=== PATIENT | female | born 1965 | race American Indian/Alaskan Native ===

== ENCOUNTER 2017-05-16 10:12 | Emergency (ER) | payer MEDICAID ==
[2017-05-16 10:38] VITALS: BP 122/98
[2017-05-16] MEDS ORDERED: TESSALON PERLES PO ONE (11:30)
--- NOTE | 2017-05-16 11:32 | Emergency Department Report ---
Chief Complaint: Sore Throat Stated Complaint: THROAT PAIN Time Seen by Provider: 05/16/17 11:24 - HPI History of Present Illness: Patient is a 51-year-old female who is presenting with cough cold congestion. Patient states that her symptoms started approximately 5 days ago with nausea vomiting diarrhea. He then progressed to a productive cough. With clear sputum. Patient now has a cough that is mostly dry however she also has sore throat. Patient states that she has had subjective fevers. Patient currently is no longer having nausea vomiting or diarrhea. Patient will receive a chest x-ray and rapid strep - Exam Vital Signs: Vital Signs 05/16/17 10:36 Temperature 99.2 F Pulse Rate 83 Respiratory 16 Rate Blood Pressure 122/98 O2 Sat by Pulse 96 Oximetry Physical Exam: Physical exam is within normal limits except for HEENT exam patient has mild erythema to the posterior pharynx. On lung exam patient has clear lungs but has a bronchitic cough. MSE screening note: Focused history and physical exam performed. Due to findings the following was ordered: ED Disposition for MSE Condition: Stable Referrals: PRIMARY CARE [Primary Care Provider] - 3-5 Days
--- NOTE | 2017-05-16 11:57 | XRay Report ---
Chest 2 views: History: Productive cough. Findings: Borderline cardiomegaly. Trachea is midline. No consolidation, pneumothorax or pleural effusion. Impression: Cardiomegaly. No acute lung changes.
--- NOTE | 2017-05-16 12:57 | Emergency Department Report ---
HPI - General Chief Complaint: Sore Throat Time Seen by Provider: 05/16/17 11:24 - HPI HPI: This is a 51-year-old female who presents to ED complaining of cough and throat pain 6 days. Patient states yellow mucus productive cough. Patient states is intermittent throughout the day. Patient denies fevers/chills/nausea/vomiting/ abdominal pain/chest pain/shortness of breath/ ED Past Medical Hx - Past Medical History Hx Hypertension: Yes (last meds 1 week ago) Hx Diabetes: Yes Hx Asthma: Yes (last use of inhaler 1 month ago) - Surgical History Additional Surgical History: D&C, eye surgery x 3 - Social History Smoking Status: Never Smoker - Medications Home Medications: Home Medications Medication Instructions Recorded Confirmed Last Taken Type Albuterol Sulfate [Proventil HFA] 1 - 2 puff IH Q4H PRN 10/21/14 01/19/15 History AtorvaSTATin [Lipitor] 40 mg PO QDAY 10/21/14 01/19/15 01/12/15 History Ergocalciferol (Vitamin D2) 2,000 unit PO DAILY 10/21/14 01/19/15 01/12/15 History [Vitamin D2] Fluticasone [Flonase] 1 spray NS QDAY 10/21/14 01/19/15 01/14/15 History Latanoprost 0.005% [Xalatan 0.005%] 1 drop OP QPM 10/21/14 01/19/15 01/12/15 History Metoprolol [Lopressor] 25 mg PO QDAY 10/21/14 01/19/15 01/12/15 History Tobramycin/Dexamethasone [Tobradex 1 - 2 drop OP Q6HR 10/21/14 01/19/15 History Eye Drops 0.3/0.1%] Triamter/Hctz 37.5-25 mg 1 tab PO QDAY 10/21/14 01/19/15 01/12/15 History [Maxzide-25] Azithromycin [Zithromax] 250 mg PO DAILY #1 pack 05/16/17 Unknown Rx Ibuprofen [Motrin] 800 mg PO Q8HR PRN #30 tablet 05/16/17 Unknown Rx guaiFENesin [Robitussin] 200 mg PO Q6HR #20 tablet 05/16/17 Unknown Rx ED Review of Systems ROS: Stated complaint: THROAT PAIN Other details as noted in HPI Constitutional: denies: chills, fever Eyes: denies: eye pain, eye discharge, vision change ENT: congestion. denies: ear pain, throat pain Respiratory: cough. denies: shortness of breath, wheezing Cardiovascular: denies: chest pain, palpitations Endocrine: no symptoms reported Gastrointestinal: denies: abdominal pain, nausea, diarrhea Genitourinary: denies: urgency, dysuria, frequency, discharge Musculoskeletal: denies: back pain, joint swelling, arthralgia Skin: denies: rash, lesions Neurological: denies: headache, weakness, paresthesias Psychiatric: denies: anxiety, depression Hematological/Lymphatic: denies: easy bleeding, easy bruising Physical Exam - Physical Exam Vital Signs: Vital Signs 05/16/17 10:36 Temperature 99.2 F Pulse Rate 83 Respiratory 16 Rate Blood Pressure 122/98 O2 Sat by Pulse 96 Oximetry Physical Exam: GENERAL: Alert and oriented x3, no apparent distress, Normal Gait, atraumatic. HEAD: Head is normocephalic and a-traumatic. EYES: Extra ocular muscles are intact. Pupils are equal, round, and reactive to light and accommodation. EARS: symetrical, atraumatic, non tender, ear canal clear and moderate cerumen, tympanic membrance non inflamed. gross auditory nml bilaterally. NOSE: Nose symetrical, Nontender,Nares appeared normal. MOUTH:Mouth is well hydrated and without lesions. Tonsils nonerythematous or swollen, Uvula midline, Tongue not elevated. Mucous membranes are moist. Posterior pharynx clear, no exudate or lesions. Patent airways. NECK: Supple. Non edematous, No carotid bruits. No lymphadenopathy or thyromegaly. No C-spine tenderness LUNGS: Symetrical with respiration, No wheezing, no rales or crackles, CTAB. HEART: S1, S2 present, regular rate and rhythm without murmur, no rubs, no gallops. Non tender to palpatio SKIN: Warm and dry, No lesions, No ulceration or induration present. ED Course Vital Signs 05/16/17 10:36 Temperature 99.2 F Pulse Rate 83 Respiratory 16 Rate Blood Pressure 122/98 O2 Sat by Pulse 96 Oximetry ED Medical Decision Making - Radiology Data Radiology results: report reviewed, image reviewed Ordering Physician: JD SOARES MD Date of Service: 05/16/17 Procedure(s): XR chest routine 2V Accession Number(s): [id number] cc: JD SOARES MD Fluoro Time In Minutes: Chest 2 views: History: Productive cough. Findings: Borderline cardiomegaly. Trachea is midline. No consolidation, pneumothorax or pleural effusion. Impression: Cardiomegaly. No acute lung changes. Transcribed By: PTP Dictated By: AMBER SHUKLA MD Electronically Authenticated By: AMBER SHUKLA MD Signed Date/Time: 05/16/17 1140 - Medical Decision Making 51-year-old female presents with upper respiratory infection course: Chest x-ray was ordered. Chest x-ray shows no acute pulmonary infection but shows some mild cardiomegaly. SHe exhibited no chest pain in the ED. Discussed x-ray findings with the patient. I discussed the patient will be going with some antibiotics and cough suppressant. Uneventful ED stay. Vital signs are normal patient is in no acute or respiratory distress. Critical care attestation.: If time is entered above; I have spent that time in minutes in the direct care of this critically ill patient, excluding procedure time. ED Disposition Clinical Impression: URI (upper respiratory infection) Qualifiers: URI type: unspecified URI Qualified Code(s): J06.9 - Acute upper respiratory infection, unspecified Disposition: DC-01 TO HOME OR SELFCARE Is pt being admited?: No Does the pt Need Aspirin: No Condition: Stable Instructions: Pharyngitis (ED), Upper Respiratory Infection (ED) Additional Instructions: Make sure to follow up with the primary care physician as discussed. Take all your medications as you've been prescribed. If you have any worsening symptoms or develop new symptoms please return to ED immediately. Prescriptions: Azithromycin [Zithromax] 250 mg PO DAILY #1 pack guaiFENesin [Robitussin] 200 mg PO Q6HR #20 tablet Ibuprofen [Motrin] 800 mg PO Q8HR PRN #30 tablet PRN Reason: Pain Referrals: PRIMARY CARE, [Primary Care Provider] - 3-5 Days Forms: Accompanied Note, Work/School Release Form(ED) Time of Disposition: 12:57
== END 2017-05-16 13:15 | disposition home or self-care (01) ==
LOC: ED 10:12
DX: J06.9 Acute upper respiratory infection, unspecified (principal); I10 Essential (primary) hypertension; E11.9 Type 2 diabetes mellitus without complications; J45.909 Unspecified asthma, uncomplicated
CPT/HCPCS: 71020; 87116; 87430

== ENCOUNTER 2018-07-01 16:52 | Emergency (ER) | payer MEDICAID ==
[2018-07-01] MEDS ORDERED: ASPIRIN PO ONE (17:01)
--- NOTE | 2018-07-01 17:12 | Emergency Department Report ---
ED General Adult HPI - General Chief complaint: Chest Pain Stated complaint: CHEST/LEFT ARM PAIN/SWEATS Time Seen by Provider: 07/01/18 17:11 Source: patient Mode of arrival: Ambulatory Limitations: No Limitations - History of Present Illness Initial comments: Patient is a 52-year-old female no significant past medical history who presents with chest pain she states the chest pain started around a few hours ago. She states that the chest pain is located in the middle for chest and radiates to her left arm. She says the chest pain since 6 out of 10. She says this occurred while she was walking up the stairs. No diaphoresis no nausea no vomiting. - Related Data Home Medications Medication Instructions Recorded Confirmed Last Taken Albuterol Sulfate [Proventil HFA] 1 - 2 puff IH Q4H PRN 10/21/14 01/19/15 0 12/20/14 AtorvaSTATin [Lipitor] 40 mg PO QDAY 10/21/14 01/19/15 01/12/15 Ergocalciferol (Vitamin D2) 2,000 unit PO DAILY 10/21/14 01/19/15 01/12/15 [Vitamin D2] Fluticasone [Flonase] 1 spray NS QDAY 10/21/14 01/19/15 01/14/15 Latanoprost 0.005% [Xalatan 0.005%] 1 drop OP QPM 10/21/14 01/19/15 01/12/15 Metoprolol [Lopressor] 25 mg PO QDAY 10/21/14 01/19/15 01/12/15 Tobramycin/Dexamethasone [Tobradex 1 - 2 drop OP Q6HR 10/21/14 01/19/15 01/12/15 Eye Drops 0.3/0.1%] Triamter/Hctz 37.5-25 mg 1 tab PO QDAY 10/21/14 01/19/15 01/12/15 [Maxzide-25] Previous Rx's Medication Instructions Recorded Last Taken Type Azithromycin [Zithromax] 250 mg PO DAILY #1 pack 05/16/17 Unknown Rx Ibuprofen [Motrin] 800 mg PO Q8HR PRN #30 tablet 05/16/17 Unknown Rx guaiFENesin [Robitussin] 200 mg PO Q6HR #20 tablet 05/16/17 Unknown Rx Methocarbamol [Robaxin-750] 750 mg PO Q6HR PRN #20 tablet 04/03/18 Unknown Rx Naproxen [Naprosyn] 500 mg PO BID #20 tablet 04/03/18 Unknown Rx Diclofenac Sodium [Voltaren] 100 gm TP Q6H PRN #1 gel..gram. 07/01/18 Unknown Rx Allergies Allergy/AdvReac Type Severity Reaction Status Date / Time shellfish derived Allergy Hives Verified 10/22/14 08:35 venom-honey bee Allergy Anaphylaxis Verified 10/22/14 08:35 [bee venom (honey bee)] yeast, dried [yeast] Allergy Shortness Verified 10/22/14 08:35 of Breath morphine AdvReac Unknown Verified 07/01/18 17:32 enviromental Allergy Shortness Uncoded 10/22/14 08:35 of Breath ED Review of Systems ROS: Stated complaint: CHEST/LEFT ARM PAIN/SWEATS Other details as noted in HPI Constitutional: denies: chills, fever Eyes: denies: eye pain, eye discharge, vision change ENT: denies: ear pain, throat pain Respiratory: denies: cough, shortness of breath, wheezing Cardiovascular: chest pain. denies: palpitations Endocrine: no symptoms reported Gastrointestinal: denies: abdominal pain, nausea, diarrhea Genitourinary: denies: urgency, dysuria, discharge Musculoskeletal: denies: back pain, joint swelling, arthralgia Skin: denies: rash, lesions Neurological: denies: headache, weakness, paresthesias Psychiatric: denies: anxiety, depression Hematological/Lymphatic: denies: easy bleeding, easy bruising ED Past Medical Hx - Past Medical History Hx Hypertension: Yes (last meds 1 week ago) Hx Diabetes: Yes Hx Asthma: Yes (last use of inhaler 1 month ago) Additional medical history: elevated cholesterol,chronic anemia requiring FE infusions,hypothyroidism - Surgical History Additional Surgical History: D&C, eye surgery x 3 - Social History Smoking Status: Never Smoker Substance Use Type: None - Medications Home Medications: Home Medications Medication Instructions Recorded Confirmed Last Taken Type Albuterol Sulfate [Proventil HFA] 1 - 2 puff IH Q4H PRN 10/21/14 01/19/15 12/20/14 History AtorvaSTATin [Lipitor] 40 mg PO QDAY 10/21/14 01/19/15 01/12/15 History Ergocalciferol (Vitamin D2) 2,000 unit PO DAILY 10/21/14 01/19/15 01/12/15 History [Vitamin D2] Fluticasone [Flonase] 1 spray NS QDAY 10/21/14 01/19/15 01/14/15 History Latanoprost 0.005% [Xalatan 0.005%] 1 drop OP QPM 10/21/14 01/19/15 01/12/15 History Metoprolol [Lopressor] 25 mg PO QDAY 10/21/14 01/19/15 01/12/15 History Tobramycin/Dexamethasone [Tobradex 1 - 2 drop OP Q6HR 10/21/14 01/19/15 01/12/15 History Eye Drops 0.3/0.1%] Triamter/Hctz 37.5-25 mg 1 tab PO QDAY 10/21/14 01/19/15 01/12/15 History [Maxzide-25] Azithromycin [Zithromax] 250 mg PO DAILY #1 pack 05/16/17 Unknown Rx Ibuprofen [Motrin] 800 mg PO Q8HR PRN #30 tablet 05/16/17 Unknown Rx guaiFENesin [Robitussin] 200 mg PO Q6HR #20 tablet 05/16/17 Unknown Rx Methocarbamol [Robaxin-750] 750 mg PO Q6HR PRN #20 tablet 04/03/18 Unknown Rx Naproxen [Naprosyn] 500 mg PO BID #20 tablet 04/03/18 Unknown Rx Diclofenac Sodium [Voltaren] 100 gm TP Q6H PRN #1 gel..gram. 07/01/18 Unknown Rx ED Physical Exam - General Limitations: No Limitations General appearance: alert, in no apparent distress - Head Head exam: Present: atraumatic, normocephalic - Eye Eye exam: Present: normal appearance - ENT ENT exam: Present: mucous membranes moist - Neck Neck exam: Present: normal inspection - Respiratory Respiratory exam: Present: normal lung sounds bilaterally. Absent: respiratory distress - Cardiovascular Cardiovascular Exam: Present: regular rate, normal rhythm. Absent: systolic murmur, diastolic murmur, rubs, gallop - GI/Abdominal GI/Abdominal exam: Present: soft, normal bowel sounds - Extremities Exam Extremities exam: Present: normal inspection - Back Exam Back exam: Present: normal inspection - Neurological Exam Neurological exam: Present: alert, oriented X3 - Psychiatric Psychiatric exam: Present: normal affect, normal mood - Skin Skin exam: Present: warm, dry, intact, normal color. Absent: rash ED Course Vital Signs 07/01/18 07/01/18 07/01/18 16:58 17:59 19:19 Temperature 97.9 F Pulse Rate 77 65 Respiratory 18 15 16 Rate Blood Pressure 123/84 Blood Pressure 114/63 [Left] O2 Sat by Pulse 99 98 Oximetry ED Medical Decision Making - Lab Data Result diagrams: 07/01/18 17:25 07/01/18 17:25 Lab Results 07/01/18 07/01/18 Range/Units 17:25 17:25 WBC 4.9 (4.5-11.0) K/mm3 RBC 4.62 (3.65-5.03) M/mm3 Hgb 13.9 (10.1-14.3) gm/dl Hct 40.9 (30.3-42.9) % MCV 89 (79-97) fl MCH 30 (28-32) pg MCHC 34 (30-34) % RDW 13.3 (13.2-15.2) % Plt Count 297 (140-440) K/mm3 Lymph % (Auto) 29.8 (13.4-35.0) % [place] % (Auto) 9.9 H (0.0-7.3) % Eos % (Auto) 3.3 (0.0-4.3) % Baso % (Auto) 1.5 (0.0-1.8) % Lymph # 1.5 (1.2-5.4) K/mm3 [place] # 0.5 (0.0-0.8) K/mm3 Eos # 0.2 (0.0-0.4) K/mm3 Baso # 0.1 (0.0-0.1) K/mm3 Seg Neutrophils % 55.5 (40.0-70.0) % Seg Neutrophils # 2.7 (1.8-7.7) K/mm3 Sodium 139 (137-145) mmol/L Potassium 4.1 (3.6-5.0) mmol/L Chloride 97.4 L (98-107) mmol/L Carbon Dioxide 29 (22-30) mmol/L Anion Gap 17 mmol/L BUN 13 (7-17) mg/dL Creatinine 0.7 (0.7-1.2) mg/dL Estimated GFR > 60 ml/min BUN/Creatinine Ratio 19 % Glucose 87 (65-100) mg/dL Calcium 9.8 (8.4-10.2) mg/dL Troponin T < 0.010 (0.00-0.029) ng/mL - EKG Data -: EKG Interpreted by Me - EKG Data 07/01/18 19:39 EKG shows normal sinus rhythm no ST segment elevation no T wave inversion - Medical Decision Making Chief medical diagnosis: Costochondritis Differential medical diagnosis: Non-STEMI, arrhythmia I will get CBC, BMP, troponin, chest x-ray, EKG I'll get a second set of troponin Patient's blood work is unremarkable I will send patient home with 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 Critical care attestation.: If time is entered above; I have spent that time in minutes in the direct care of this critically ill patient, excluding procedure time. ED Disposition Clinical Impression: Costochondritis Disposition: DC-01 TO HOME OR SELFCARE Is pt being admited?: No Does the pt Need Aspirin: No Condition: Stable Instructions: Chest Pain (ED) Prescriptions: Diclofenac Sodium [Voltaren] 100 gm TP Q6H PRN #1 gel..gram. PRN Reason: Pain, Moderate (4-6)
[2018-07-01] MEDS ORDERED: MORPHINE IV ONE (17:24)
[2018-07-01 17:36] LABS: Basophils # (Auto) 0.1 K/mm3 (0.0-0.1); Basophils % (Auto) 1.5 % (0.0-1.8); Eosinophils # (Auto) 0.2 K/mm3 (0.0-0.4); Eosinophils % (Auto) 3.3 % (0.0-4.3); Hematocrit 40.9 % (30.3-42.9); Hemoglobin 13.9 gm/dl (10.1-14.3); Lymphocytes # (Auto) 1.5 K/mm3 (1.2-5.4); Lymphocytes % (Auto) 29.8 % (13.4-35.0); Mean Corpuscular HGB Conc 34 % (30-34); Mean Corpuscular Volume 89 fl (79-97); Monocytes # (Auto) 0.5 K/mm3 (0.0-0.8); Monocytes % (Auto) 9.9 % (0.0-7.3); Platelet Count 297 K/mm3 (140-440); Red Blood Count 4.62 M/mm3 (3.65-5.03); Red Cell Distribution Width 13.3 % (13.2-15.2)
[2018-07-01 17:52] LABS: BUN/Creatinine Ratio 19; Blood Urea Nitrogen 13 mg/dL (7-17); Calcium 9.8 mg/dL (8.4-10.2); Hemolysis Index 11
--- NOTE | 2018-07-01 19:28 | XRay Report ---
FINAL REPORT EXAM: XR CHEST ROUTINE 2V HISTORY: chest pain TECHNIQUE: PA and lateral views of the chest Comparison: None FINDINGS: There is bilateral hypoinflation. There appear to be patchy areas of pulmonary consolidation in both lung bases. Atelectasis versus inf iltrates. The cardiac silhouette is enlarged. The thoracic aorta and bony structures are unremarkable. The visualized portion the upper abdomen is notable for the appearance of moderate to marked distenti on of the stomach. IMPRESSION: 1. Hypoinflation with patchy areas of atelectasis versus infiltrates in both lung bases. If further imaging is required, CT chest may be helpful. 2. Enlarged cardiac silhouette. 3. Appearance of moderate to marked distention of the stomach.
[2018-07-01 21:34] VITALS: BP 118/93
== END 2018-07-01 22:29 | disposition home or self-care (01) ==
LOC: ED 16:52
DX: M94.0 Chondrocostal junction syndrome [Tietze] (principal); I10 Essential (primary) hypertension; E11.9 Type 2 diabetes mellitus without complications; J45.909 Unspecified asthma, uncomplicated; E78.00 Pure hypercholesterolemia, unspecified; G89.29 Other chronic pain; Z86.2 Personal history of diseases of the blood and blood-forming organs and certain disorders involving the immune mechanism; E03.9 Hypothyroidism, unspecified; Z79.899 Other long term (current) drug therapy; Z91.013 Allergy to seafood; Z91.030 Bee allergy status; Z91.018 Allergy to other foods; Z88.6 Allergy status to analgesic agent
CPT/HCPCS: 36415; 71046; 80048; 84484; 85025; 93005; 93010

== ENCOUNTER 2018-09-14 01:40 | Emergency (ER) | payer MEDICAID ==
[2018-09-14 02:39] LABS: Basophils # (Auto) 0.1 K/mm3 (0.0-0.1); Basophils % (Auto) 1.3 % (0.0-1.8); Eosinophils # (Auto) 0.1 K/mm3 (0.0-0.4); Eosinophils % (Auto) 3.1 % (0.0-4.3); Hemoglobin 13.4 gm/dl (10.1-14.3); Lymphocytes # (Auto) 1.8 K/mm3 (1.2-5.4); Lymphocytes % (Auto) 44.8 % (13.4-35.0); Mean Corpuscular HGB Conc 34 % (30-34); Mean Corpuscular Volume 90 fl (79-97); Monocytes # (Auto) 0.3 K/mm3 (0.0-0.8); Monocytes % (Auto) 8.9 % (0.0-7.3); Platelet Count 258 K/mm3 (140-440); Red Blood Count 4.44 M/mm3 (3.65-5.03); Red Cell Distribution Width 13.1 % (13.2-15.2)
--- NOTE | 2018-09-14 02:47 | Cat Scan Report ---
PROCEDURE: CT HEAD/BRAIN WO CON TECHNIQUE: Computerized tomography of the head was performed without contrast material. CT DOSE LENGTH PRODUCT: 920.5 mGycm HISTORY: neuro deficits <6hrs or sx present upon awakening COMPARISONS: None . FINDINGS: Skull and scalp: Normal . Paranasal sinuses: Normal . Ventricles and subarachnoid spaces: Normal . Cerebrum: No evidence of hemorrhage, acute infarction or mass . Cerebellum and brainstem: No evidence of hemorrhage, acute infarction or mass . Vasculature: Normal . Other: None . ASPECTS: 10 IMPRESSION: Normal Examination . This document is electronically signed by Shahnaz Alvarado DO., September 14 2018 02:45:54 AM ET
[2018-09-14 02:57] LABS: INR 0.8 (0.87-1.13)
[2018-09-14 02:58] LABS: Partial Thromboplastin Time 26.6 Sec. (24.2-36.6); Thrombin Time 16.3 Sec. (15.1-19.6)
[2018-09-14 03:18] LABS: BUN/Creatinine Ratio 21; Blood Urea Nitrogen 15 mg/dL (7-17); Calcium 10.1 mg/dL (8.4-10.2); Hemolysis Index 8
[2018-09-14] MEDS ORDERED: CATAPRES PO ONE (06:14)
--- NOTE | 2018-09-14 06:19 | Emergency Department Report ---
ED Neuro Deficit HPI - General Chief Complaint: Neuro Symptoms/Deficit Stated Complaint: FACIAL NUMBNESS/LEFT EYE BLURRY Time Seen by Provider: 09/14/18 06:07 Source: patient Mode of arrival: Ambulatory Limitations: No Limitations - History of Present Illness Initial Comments: Patient is 52 years old female with history of hypertension. Patient presented to the ER complaining of bilateral facial numbness. Patient stated that pain and numbness is started on the left sided and then went to the right side. She also stated that she's been having bilateral arm numbness and bilateral lower extremity numbness. Patient stated the symptoms started this morning. Patient denied any difficulty speaking. She also denied any headache, weakness, bowel or bladder incontinence. Patient stated that she had a similar episode one month ago and she was admitted to [facility] for TIA for which she had a full workup including MRI and MRA of the brain and echocardiogram and patient stated that all results was negative. Patient in triage found to have a blood pressure of 169/140. Patient did not meet criteria for acute stroke, FAST exam is negative. -: This morning Location: left face, right face, left arm, right arm, left leg, right leg Presenting Symptoms: Present: Facial Droop/Numbness History of same: Yes Place: home Context: gradual onset Treatments Prior to Arrival: none - Related Data Home Medications: Home Medications Medication Instructions Recorded Confirmed Last Taken Albuterol Sulfate [Proventil HFA] 1 - 2 puff IH Q4H PRN 10/21/14 01/19/15 12/20/14 AtorvaSTATin [Lipitor] 40 mg PO QDAY 10/21/14 01/19/15 01/12/15 Ergocalciferol (Vitamin D2) 2,000 unit PO DAILY 10/21/14 01/19/15 01/12/15 [Vitamin D2] Fluticasone [Flonase] 1 spray NS QDAY 10/21/14 01/19/15 01/14/15 Latanoprost 0.005% [Xalatan 0.005%] 1 drop OP QPM 10/21/14 01/19/15 01/12/15 Metoprolol [Lopressor] 25 mg PO QDAY 10/21/14 01/19/15 01/12/15 Tobramycin/Dexamethasone [Tobradex 1 - 2 drop OP Q6HR 10/21/14 01/19/15 01/12/15 Eye Drops 0.3/0.1%] Triamter/Hctz 37.5-25 mg 1 tab PO QDAY 10/21/14 01/19/15 01/12/15 [Maxzide-25] Previous Rx's Medication Instructions Recorded Last Taken Type Azithromycin [Zithromax] 250 mg PO DAILY #1 pack 05/16/17 Unknown Rx Ibuprofen [Motrin] 800 mg PO Q8HR PRN #30 tablet 05/16/17 Unknown Rx guaiFENesin [Robitussin] 200 mg PO Q6HR #20 tablet 05/16/17 Unknown Rx Methocarbamol [Robaxin-750] 750 mg PO Q6HR PRN #20 tablet 04/03/18 Unknown Rx Naproxen [Naprosyn] 500 mg PO BID #20 tablet 04/03/18 Unknown Rx Diclofenac Sodium [Voltaren] 100 gm TP Q6H PRN #1 gel..gram. 07/01/18 Unknown Rx Allergies/Adverse Reactions: Allergies Allergy/AdvReac Type Severity Reaction Status Date / Time shellfish derived Allergy Hives Verified 10/22/14 08:35 venom-honey bee Allergy Anaphylaxis Verified 10/22/14 08:35 [bee venom (honey bee)] yeast, dried [yeast] Allergy Shortness Verified 10/22/14 08:35 of Breath morphine AdvReac Unknown Verified 07/01/18 17:32 enviromental Allergy Shortness Uncoded 10/22/14 08:35 of Breath ED Review of Systems ROS: Stated complaint: FACIAL NUMBNESS/LEFT EYE BLURRY Other details as noted in HPI Comment: All other systems reviewed and negative Constitutional: denies: chills, fever Respiratory: denies: cough, orthopnea, shortness of breath, SOB with exertion, SOB at rest Cardiovascular: denies: chest pain, palpitations Gastrointestinal: denies: abdominal pain, nausea Genitourinary: denies: urgency, dysuria, frequency, hematuria, discharge Musculoskeletal: denies: back pain Neurological: numbness, paresthesias. denies: headache, weakness, confusion, abnormal gait ED Past Medical Hx - Past Medical History Previous Medical History?: Yes Hx Hypertension: Yes (last meds 1 week ago) Hx Diabetes: Yes Hx Asthma: Yes (last use of inhaler 1 month ago) Additional medical history: elevated cholesterol,chronic anemia requiring FE infusions,hypothyroidism, TIA - Surgical History Past Surgical History?: Yes Additional Surgical History: D&C, eye surgery x 3 - Social History Smoking Status: Never Smoker Substance Use Type: None - Medications Home Medications: Home Medications Medication Instructions Recorded Confirmed Last Taken Type Albuterol Sulfate [Proventil HFA] 1 - 2 puff IH Q4H PRN 10/21/14 01/19/15 12/20/14 History AtorvaSTATin [Lipitor] 40 mg PO QDAY 10/21/14 01/19/15 01/12/15 History Ergocalciferol (Vitamin D2) 2,000 unit PO DAILY 10/21/14 01/19/15 01/12/15 History [Vitamin D2] Fluticasone [Flonase] 1 spray NS QDAY 10/21/14 01/19/15 01/14/15 History Latanoprost 0.005% [Xalatan 0.005%] 1 drop OP QPM 10/21/14 01/19/15 01/12/15 History Metoprolol [Lopressor] 25 mg PO QDAY 10/21/14 01/19/15 01/12/15 History Tobramycin/Dexamethasone [Tobradex 1 - 2 drop OP Q6HR 10/21/14 01/19/15 01/12/15 History Eye Drops 0.3/0.1%] Triamter/Hctz 37.5-25 mg 1 tab PO QDAY 10/21/14 01/19/15 01/12/15 History [Maxzide-25] Azithromycin [Zithromax] 250 mg PO DAILY #1 pack 05/16/17 Unknown Rx Ibuprofen [Motrin] 800 mg PO Q8HR PRN #30 tablet 05/16/17 Unknown Rx guaiFENesin [Robitussin] 200 mg PO Q6HR #20 tablet 05/16/17 Unknown Rx Methocarbamol [Robaxin-750] 750 mg PO Q6HR PRN #20 tablet 04/03/18 Unknown Rx Naproxen [Naprosyn] 500 mg PO BID #20 tablet 04/03/18 Unknown Rx Diclofenac Sodium [Voltaren] 100 gm TP Q6H PRN #1 gel..gram. 07/01/18 Unknown Rx ED Neuro Physical Exam - General Limitations: No Limitations General appearance: alert, in no apparent distress Suspected Stroke: Yes - Head Head exam: Present: atraumatic, normocephalic, normal inspection - Eye Eye exam: Present: normal appearance, PERRL - ENT ENT exam: Present: normal exam, normal orophraynx - Neck Neck exam: Present: normal inspection, full ROM. Absent: tenderness, meningismus, lymphadenopathy, thyromegaly - Respiratory Respiratory exam: Present: normal lung sounds bilaterally. Absent: respiratory distress, wheezes, rales, rhonchi, stridor, chest wall tenderness, accessory muscle use, decreased breath sounds, prolonged expiratory - Cardiovascular Cardiovascular Exam: Present: regular rate, normal rhythm, normal heart sounds - GI/Abdominal GI/Abdominal exam: Present: soft, normal bowel sounds. Absent: distended, tende rness, guarding, rebound, rigid, mass, bruit, pulsatile mass, hernia - Extremities Exam Extremities exam: Present: normal inspection, full ROM - Back Exam Back exam: Present: normal inspection, full ROM - Neurological Exam Neurological exam: Present: alert, oriented X3, CN II-XII intact, normal gait, reflexes normal - NIHSS Assessment Interval: Baseline 1a. Level of Consciousness: alert/keenly responsive 1b. LOC Questions: answers both correctly 1c. LOC Commands: performs tasks correctly 2. Best Gaze: normal 3. Visual: no visual loss 4. Facial Palsy: normal symmetrical movement 5b. Motor Arm Right: no drift 5a. Motor Arm Left: no drift 6a. Motor Leg Left: no drift 6b. Motor Leg Right: no drift 7. Limb Ataxia: absent 8. Sensory: normal 9. Best Language: no aphasia 10. Dysarthria: normal 11. Extinction/Inattention: no abnormality Total Score: 0 Stroke Severity: No Stroke Symptoms - Psychiatric Psychiatric exam: Present: normal affect, normal mood - Skin Skin exam: Present: warm, intact, normal color ED Course Vital Signs 09/14/18 09/14/18 09/14/18 01:50 05:40 05:46 Temperature 97.8 F Pulse Rate 65 57 L 54 L Respiratory 18 15 15 Rate Blood Pressure 169/140 O2 Sat by Pulse 97 100 Oximetry 09/14/18 09/14/18 09/14/18 06:00 06:16 06:30 Temperature Pulse Rate 54 L 57 L 53 L Respiratory 15 18 14 Rate Blood Pressure 162/95 162/95 162/95 O2 Sat by Pulse 100 99 99 Oximetry 09/14/18 09/14/18 09/14/18 06:46 07:00 07:03 Temperature Pulse Rate 52 L 52 L 52 L Respiratory 13 14 Rate Blood Pressure 162/95 134/80 134/80 O2 Sat by Pulse 100 99 Oximetry - Lab Data Result diagrams: 09/14/18 02:20 09/14/18 02:20 Lab Results 09/14/18 09/14/18 09/14/18 Range/Units 02:20 02:20 02:20 WBC 3.9 L (4.5-11.0) K/mm3 RBC 4.44 (3.65-5.03) M/mm3 Hgb 13.4 (10.1-14.3) gm/dl Hct 40.0 (30.3-42.9) % MCV 90 (79-97) fl MCH 30 (28-32) pg MCHC 34 (30-34) % RDW 13.1 L (13.2-15.2) % Plt Count 258 (140-440) K/mm3 Lymph % (Auto) 44.8 H (13.4-35.0) % [place] % (Auto) 8.9 H (0.0-7.3) % Eos % (Auto) 3.1 (0.0-4.3) % Baso % (Auto) 1.3 (0.0-1.8) % Lymph # 1.8 (1.2-5.4) K/mm3 [place] # 0.3 (0.0-0.8) K/mm3 Eos # 0.1 (0.0-0.4) K/mm3 Baso # 0.1 (0.0-0.1) K/mm3 Seg Neutrophils % 41.9 (40.0-70.0) % Seg Neutrophils # 1.6 L (1.8-7.7) K/mm3 PT 11.6 L (12.2-14.9) Sec. INR 0.80 L (0.87-1.13) APTT 26.6 (24.2-36.6) Sec. Thrombin Time 16.3 (15.1-19.6) Sec. Sodium 140 (137-145) mmol/L Potassium 4.7 (3.6-5.0) mmol/L Chloride 101.9 (98-107) mmol/L Carbon Dioxide 27 (22-30) mmol/L Anion Gap 16 mmol/L BUN 15 (7-17) mg/dL Creatinine 0.7 (0.7-1.2) mg/dL Estimated GFR > 60 ml/min BUN/Creatinine Ratio 21 % Glucose 101 H (65-100) mg/dL Calcium 10.1 (8.4-10.2) mg/dL Troponin T < 0.010 (0.00-0.029) ng/mL - EKG Data -: EKG Interpreted by Me EKG shows normal: sinus rhythm Rate: bradycardia Interpretation: no acute changes - Radiology Data Radiology results: report reviewed CT brain is negative for acute finding. - Medical Decision Making Patient is 52 years old female with history of hypertension. Patient presented to the ER complaining of bilateral facial numbness. Patient stated that pain and numbness is started on the left sided and then went to the right side. She also stated that she's been having bilateral arm numbness and bilateral lower extremity numbness. Patient stated the symptoms started this morning. Patient denied any difficulty speaking. She also denied any headache, weakness, bowel or bladder incontinence. Patient stated that she had a similar episode one month ago and she was admitted to [facility] for TIA for which she had a full workup including MRI and MRA of the brain and echocardiogram and patient stated that all results was negative. Patient in triage found to have a blood pressure of 169/140. Patient did not meet criteria for acute stroke, FAST exam is negative. Patient received clonidine 0.1 mg. Blood pressure now is 134/80. Patient stated that her symptoms is completely resolved. Patient's CT brain is negative. EKG is unremarkable. Labs results reviewed and is unremarkable. I believe patient's symptoms is most likely related to hypertensive urgency. Patient had a negative stroke workup last month at [facility]. No evidence of stroke or TIA. Patient will be restarted on her lisinopril/hydrochlorothiazide and advised to follow up with her primary care physician in the next 2-3 days. Patient also advised to return to the ER if her symptoms are not improved. Critical care attestation.: If time is entered above; I have spent that time in minutes in the direct care of this critically ill patient, excluding procedure time. ED Disposition Clinical Impression: Numbness, Hypertensive urgency Disposition: DC-01 TO HOME OR SELFCARE Is pt being admited?: No Condition: Stable Instructions: Hypertension (ED) Referrals: INNA RAMIREZ MD [Primary Care Provider] - 3-5 Days
[2018-09-14 07:02] VITALS: BP 134/80
== END 2018-09-14 08:40 | disposition home or self-care (01) ==
LOC: ED 01:40
DX: I16.0 Hypertensive urgency (principal); I10 Essential (primary) hypertension; E11.9 Type 2 diabetes mellitus without complications; J45.909 Unspecified asthma, uncomplicated; E78.00 Pure hypercholesterolemia, unspecified; E03.9 Hypothyroidism, unspecified; Z86.2 Personal history of diseases of the blood and blood-forming organs and certain disorders involving the immune mechanism; Z86.73 Personal history of transient ischemic attack (TIA), and cerebral infarction without residual deficits; Z91.013 Allergy to seafood; Z91.030 Bee allergy status; Z88.5 Allergy status to narcotic agent; Z91.89 Other specified personal risk factors, not elsewhere classified
CPT/HCPCS: 36415; 70450; 80048; 84484; 85025; 85610; 85670; 85730; 93005; 93010; 99284